=== PATIENT | male | born 1995 | race Caucasian/White ===

== ENCOUNTER 2017-05-03 15:01 | Emergency (ER) | payer OTHER ==
[2017-05-03] MEDS ORDERED: Ketorolac Tromethamine 30 MG/ML VIAL ONE (15:20)
--- NOTE | 2017-05-03 16:54 | RAD ---
LUMBAR SPINE RADIOGRAPH SERIES 2-3 VIEWS 05/03/17 INDICATION: Pain, injury. FINDINGS: Vertebral body heights and alignment are maintained. Disc space heights are preserved. IMPRESSION: No acute osseous abnormality of the lumbar spine. POS: [facility]
== END 2017-05-03 16:50 | disposition home or self-care (01) ==
LOC: ERS 15:01
DX: S39.012A Strain of muscle, fascia and tendon of lower back, initial encounter (principal); F17.210 Nicotine dependence, cigarettes, uncomplicated; X50.0XXA Overexertion from strenuous movement or load, initial encounter; Y93.B3 Activity, free weights
CPT/HCPCS: 72100; 96372; J1885